=== PATIENT | male | born 2000 | race Caucasian/White ===

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

== ENCOUNTER 2022-05-23 18:16 | Emergency (ER) | payer MEDICAID, SELFPAY ==
--- NOTE | ~2022-05-23 | CT_ITS ---
EXAMINATION: CT head/brain wo IV con CLINICAL INFORMATION: Reason for Exam new onset seizure COMPARISON: None. TECHNIQUE: Contiguous axial imaging was performed from the skull base to vertex without intravenous contrast. Sagittal and coronal reformatted images were obtained. This CT examination was performed using dose optimization techniques as appropriate, variously including the following: * Automated exposure control * Adjustment of mA and/or kV according to patient size (this includes techniques or standardized protocols for targeted exams where dose is matched to indication/reason for exam; i.e. extremities or head) Use of iterative reconstruction technique DLP: 757 mGy-cm FINDINGS: No acute osseous or soft tissue abnormality. The mastoids are clear. Partially visualized small left maxillary sinus mucous retention cyst. There is no evidence of acute intracranial hemorrhage or territorial infarction. No midline shift is seen. [place] to white matter differentiation is well preserved. No extra-axial fluid collections are identified. The posterior superior right cerebellum appears laterally displaced with mass effect on the confluence of sinuses. An enlarged extra-axial space along the anterolateral right cerebellar hemisphere may reflect a space-occupying arachnoid cyst. No hydrocephalus. No significant volume loss. There is no abnormal attenuation within the brain parenchyma. CT/CT head/brain wo IV con IMPRESSION: 1. No acute intracranial abnormality including hemorrhage, mass effect, hydrocephalus, or acute territorial edematous infarction. 2. Mild displacement of the posterior superior right cerebellum with associated enlargement of the extra-axial space along the anterolateral right cerebellar hemisphere, possibly reflecting a space-occupying arachnoid cyst. This could be further characterized with a nonemergent noncontrast MRI of the brain
--- NOTE | 2022-05-23 18:26 | ED_ITS ---
HPI - Seizure General Chief Complaint: Seizure Stated Complaint: SEIZURE, FALL Time Seen by Provider: 05/23/22 18:26 Source: family Mode of arrival: EMS History of Present Illness HPI Narrative: Patient history of severe autism not nonverbal brought by EMS for questionable episode of seizure which was unwitnessed. Patient was in the room alone mother was in separate room heard the sound of fall and found him on the floor with eyes up rolling and not responsive by the time EMS reached patient postictal stage improved and was back to normal no incontinence had a small tongue bite on the left side. Patient had similar episode 3 months ago it was also a unwitnessed. Patient has not seen any neurologist Seizure History: No Related Data Allergies Allergy/AdvReac Type Severity Reaction Status Date / Time No Known Allergies Allergy Verified 11/24/21 23:04 Review of Systems Review of Systems: Yes all other systems are reviewed and are negative [facility] Past Medical History Medical History Autism Social History Social History Alcohol intake: never Patient Tobacco Use Status: Never used Tobacco Advance Directives: No Advance Directives Information Provided: Yes Physical Exam Vital Signs: Vital Signs: Last Vital Signs Temp 97.1 F 05/23/22 18:29 Pulse 76 05/23/22 18:29 Resp 18 05/23/22 18:29 BP 98/73 05/23/22 18:29 Pulse Ox 99 05/23/22 18:29 O2 Del Method 05/23/22 18:29 BMI result Body Mass Index 22.6 Appearance: Alert. And awake nonverbal. No acute distress. Eyes: PERRLA, No Nystagmus ENT: Pharynx normal. Oral Mucosa moist tongue bite+ Neck: Normal inspection. Neck supple. CVS: Normal heart rate and rhythm. Pulses normal. Respiratory: No respiratory distress. Equal air entry bilateral, no wheezing/rales/rhonchi Abdomen: Soft and nontender. Bowel sounds are present, Skin: Skin warm and dry. Normal skin color. Normal skin turgor. Extremities: No lower extremity edema. No calf tenderness Neuro: Alert at baseline. No motor deficit. Medical Decision Making Medical Decision Making MDM Narrative: Patient with autism clinically had a seizure episode patient's mother refusing to start any new medication at this time will follow-up with his PCP/neurologist advised to start on Depakote. Patient had CT is negative for acute Lab Data MDM Lab Attestation statement: I reviewed the patient's lab results. Result Diagrams: 05/23/22 19:39 05/23/22 19:39 Labs: Lab Results 05/23/22 05/23/22 Range/Units 19:39 19:39 WBC 7.4 (4.8-10.8) X10*3/uL RBC 4.51 L (4.60-5.80) X10*6/uL Hgb 13.5 L (14.0-18.0) g/dl Hct 38.0 L (42.0-52.0) % MCV 84.3 (80.0-98.0) fL MCH 29.9 (27.0-33.0) pg MCHC 35.5 (31.0-36.0) g/dl RDW 12.7 (11.0-16.0) % Plt Count 227 (160-400) X10*3/uL MPV 10.1 (9.4-12.4) fL Immature Gran % (Auto) 0.1 (0.0-0.4) % Neut % (Auto) 73.2 H (45-73) % Lymph % (Auto) 17.3 L (20-40) % [place] % (Auto) 8.2 (2-11) % Eos % (Auto) 1.1 (0-4) % Baso % (Auto) 0.1 (0-2) % Lymph # (Auto) 1.3 (1.2-4.9) X10*3/uL [place] # (Auto) 0.6 (0.1-1.2) X10*3/uL Eos # (Auto) 0.1 (0.0-0.4) X10*3/uL Baso # (Auto) 0.0 (0.0-0.2) X10*3/uL Abs Immat Gran (auto) 0.01 (0.00-0.03) X10*3/uL Absolute Neuts (auto) 5.4 (2.0-8.3) x10*3/uL Absolute Nucleated RBC 0.000 (0.0-0.012) X10*3/uL Nucleated RBC % (auto) 0.0 (0.0-0.2) /100WBC Sodium 139 (135-145) mmol/L Potassium 3.7 (3.3-5.1) mmol/L Chloride 109 H (96-108) mmol/L Carbon Dioxide 24 (22-29) mmol/L Anion Gap 10 L (12-20) BUN 20 H (9-16) mg/dL Creatinine 0.76 (0.5-1.4) mg/dL Estim Creat Clear Calc 139.2 Estimated GFR > 60 Random Glucose 97 (60-115) mg/dL Calcium 9.5 (8.4-10.2) mg/dL Total Bilirubin 0.3 (0.0-1.0) mg/dL AST 24 (5-37) U/L ALT 26 (0-40) U/L Alkaline Phosphatase 108 (39-117) U/L Total Protein 6.7 (6.5-8.0) g/dL Albumin 4.4 (3.5-5.0) g/dL Discharge Plan Discharge Clinical Impression: New onset seizure Patient Disposition: Home, Self-Care Instructions: New-Onset Seizure in Adults (ED) Additional Instructions: Follow-up with neurologist for further management Report to the ER if recurrence of seizures Referrals: Amanda House MD [Physician] - 1 week
[2022-05-23 18:29] VITALS: BP 98/73; PULSE 76; RESP 18; TEMP 36.2; O2SAT 99; BMI 22.6
[2022-05-23 19:46] LABS: MANUAL DIFF FLAG NO
[2022-05-23 19:52] LABS: Basophils Percent Auto 0.1 % (0-2); Eosinophils Absolute Auto 0.1 X10*3/uL (0.0-0.4); Eosinophils Percent Auto 1.1 % (0-4); Hemoglobin 13.5 g/dl (14.0-18.0); Imm Gran Abs Auto 0.01 X10*3/uL (0.00-0.03); Imm Gran Pct Auto 0.1 % (0.0-0.4); Lymphocytes Absolute Auto 1.3 X10*3/uL (1.2-4.9); Lymphocytes Percent Auto 17.3 % (20-40); Mean Corpuscular HGB Conc 35.5 g/dl (31.0-36.0); Mean Corpuscular Hemoglobin 29.9 pg (27.0-33.0); Mean Corpuscular Volume 84.3 fL (80.0-98.0); Mean Platelet Volume 10.1 fL (9.4-12.4); Monocytes Absolute Auto 0.6 X10*3/uL (0.1-1.2); Monocytes Percent Auto 8.2 % (2-11); Neutrophils Absolute Auto 5.4 x10*3/uL (2.0-8.3); Neutrophils Percent Auto 73.2 % (45-73); Platelet Count 227 X10*3/uL (160-400); Red Blood Count 4.51 X10*6/uL (4.60-5.80); Red Cell Distribution Width 12.7 % (11.0-16.0); White Blood Count 7.4 X10*3/uL (4.8-10.8)
[2022-05-23 20:08] LABS: Alanine Aminotransferase 26 U/L (0-40); Albumin Level 4.4 g/dL (3.5-5.0); Alkaline Phosphatase 108 U/L (39-117); Anion Gap 10 (12-20); Aspartate Amino Transferase 24 U/L (5-37); Bilirubin Total 0.3 mg/dL (0.0-1.0); Blood Urea Nitrogen 20 mg/dL (9-16); Calcium 9.5 mg/dL (8.4-10.2); Carbon Dioxide 24 mmol/L (22-29); Chloride 109 mmol/L (96-108); Creatinine Clr Calc Pharmacy 139.2; Estimated Glomerular Filt Rate > 60; Glucose Random 97 mg/dL (60-115); Potassium 3.7 mmol/L (3.3-5.1); Sodium 139 mmol/L (135-145); Total Protein 6.7 g/dL (6.5-8.0)
== END 2022-05-23 20:47 | disposition home or self-care (01) ==
PROVIDERS: Emergency Provider Internal Medicine; PCP Pediatrics
DX: R56.9 Unspecified convulsions (principal); F84.0 Autistic disorder
CPT/HCPCS: 36415; 70450; 80053; 85025; 99282; 99284

== ENCOUNTER 2023-11-26 08:57 | Outpatient (AMB) | payer OTHER, SELFPAY ==
[2023-11-26 09:10] VITALS: BP 130/62; PULSE 50; O2SAT 98; BMI 18.9
--- NOTE | 2023-11-26 09:10 | MHC.PC.OV ---
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: No Information Interpreted: non-clinical only [employer]: Present Accompanied by: Mother Allergies No Known Allergies Allergy (Verified 11/26/23 09:35) Medication List - Last Reconciled 11/26/23 by Linda Buenrostro MD levetiracetam 500 mg PO BID Tobacco use date assessed: 11/26/23 Dental Screening Dental Screen Date: 11/26/23 Did you have a dental visit in the last 12 months?: Yes Did you have a dental problem in the last 6 months where you did not have access to dental care?: No Was dental information given to patient?: Patient has dentist HPI HPI Comments History of Present Illness Details This is a 23-year-old male with autism that comes accompanied by mother which is the main historian for his physical exam as new patient. He is nonverbal and does not make eye contact. No acute complaints. Has seizures follow by Neurology at [facility]. [facility] Medical History (Updated 11/26/23 @ 09:46 by Linda Buenrostro MD) Autism Surgical History (Updated 11/26/23 @ 09:39 by Linda Buenrostro MD) History of testicular surgery Family History Mother No problems noted. Other Hypertension Mental health problem Social History Alcohol intake: never Patient Tobacco Use Status: Never used Tobacco Current occupational status: disabled Cognitive needs: No Hearing needs: No Vision needs: No Questionnaire PHQ-9 Over the last 2 weeks, how often have you been bothered by any of the following problems? 1. Little interest or pleasure in doing things: not at all 2. Feeling down, depressed, or hopeless: not at all 3. Trouble falling or staying asleep, or sleeping too much: not at all 4. Feeling tired or having little energy: not at all 5. Poor appetite or overeating: not at all 6. Feeling bad about yourself - or that you are a failure or have let yourself or your family down: not at all 7. Trouble concentrating on things, such as reading the newspaper or watching television: not at all 8. Moving or speaking so slowly that other people could have noticed. Or the opposite - being so fidgety or restless that you have been moving around a lot more than usual: not at all 9. Thoughts that you would be better off or of hurting yourself in some way: not at all Total score: 0 Depression Screening Interpretation: Negative Depression Screening Done: Yes 93340 - PHQ-9 Billing: Yes Source: Developed by Drs. Adriano Mckeon, Roseann Arroyo, Michael Lopez and colleagues, with an educational lani from [employer]. Thrive Questionnaire Date Thrive assessed: 11/26/23 I am a: Patient What is your living situation today?: I have a steady place to live Within the past 12 months, did the food you bought not last and you didn't have the money to get more?: Never true Within the past 12 months, did you worry whether your food would run out before you got money to buy more?: Never true Do you have trouble paying for medicines?: No Do you have trouble getting transportation to medical appointments?: No Do you have trouble paying your heating and electricity bill?: No Do you have trouble taking care of your child, family member or friend?: No Do you have trouble with day-to-day activities such as bathing, preparing meals, shopping, managing finances, etc.?: No Are you currently unemployed and looking for a job?: No Are you interested in more education?: No Please select the resources that you would like help with: None THRIVE Score: 0 AUDIT C Alcohol Use Questionnaire (AUDIT-C) 1. How often do you have a drink containing alcohol?: Never Total Score: 0 JOSÉ-7 AMB Questionnaire JOSÉ-7 Date JOSÉ - 7 assessed: 11/26/23 Feeling nervous, anxious, or on edge: 0 = Not at all Not being able to stop or control worryin = Not at all Worrying too much about different things: 0 = Not at all Trouble relaxin = Not at all Being so restless that it is hard to sit still: 0 = Not at all Becoming easily annoyed or irritable: 0 = Not at all Feeling afraid as if something awful might happen: 0 = Not at all Total JOSÉ-7 score (0-4 normal; 5-9 mild; 10-14 moderate; 15-21 severe): 0 Source: Developed by Drs. Adriano Mckeon, Roseann Arroyo, Michael Lopez and colleagues, with an educational lani from [employer]. JOSÉ-7 Assessment Billing JOSÉ-7 Assessment Tool: JOSÉ-7 Assessment 64843 Review of Systems Const All systems reviewed & are unremarkable except as noted in HPI and below ENT Denies change in voice, Denies nasal discharge and Denies sinus pain Card Denies chest pain at rest, Denies chest pain with activity, Denies edema, Denies irregular heart rhythm, Denies claudication, Denies dyspnea, Denies dyspnea on exertion, Denies orthopnea, Denies paroxysmal nocturnal dyspnea and Denies slow heart rate Resp Denies cough, Denies dyspnea and Denies dyspnea on exertion GI Denies abdominal pain, Denies change in bowel habits, Denies excessive flatus, Denies nausea and Denies vomiting Denies urinary hesitancy, Denies urinary incontinence and Denies urinary urgency Musc Denies atrophy, Denies deformity and Denies limited range of motion Skin/Breast Denies bleeding lesions, Denies changing lesions and Denies rash Physical exam (Primary Care) Vital Signs: Last Vital Signs Pulse Ox 98 11/26/23 09:10 Oxygen Delivery Method Room Air 11/26/23 09:10 BMI result Body Mass Index 18.9 Tobacco/Smoking Status: Tobacco use Status Tobacco use date assessed 11/26/23 11/26/23 09:13 Patient Tobacco Use Status Never used Tobacco 11/26/23 09:10 PHQ-9: PHQ-9 Score PHQ-9: Total score 0 11/26/23 09:19 Depression Screening Interpretation: Negative Thrive Assessment: Date of Thrive Assessment Date Thrive assessed 11/26/23 11/26/23 09:19 HENUT Head: Yes normal to inspection, Yes normocephalic and Yes atraumatic Ears: external ears normal General nose exam: Normal external nose present and No nasal discharge present Face and sinus: Yes sinuses nontender Mouth: lip normal Eyes General: appearance normal, both eyes and all related structures Eyelids: Yes eyelids normal Conjunctivae: conjunctivae normal Neck Neck: Yes normal visual inspection and Yes supple Resp Effort & Inspection: normal respiratory effort Auscultation: clear to auscultation bilaterally Cardio Jugular venous distension: no JVD Rate: regular rate Rhythm: regular rhythm Heart sounds: S1 normal heart sound present and S2 normal heart sound present GI Inspection: Yes normal to inspection Palpation (GI): Soft to palpation and nontender Auscultation: normal bowel sounds Skin General skin exam: no rashes or lesions noted Neuro General: no focal motor deficits Extrem General: Yes full ROM Assessment and Plan Assessment & Plan (1) Physical exam: Code(s): Z00.00 - Encounter for general adult medical examination without abnormal findings Plan: Repeat in a year. (2) Seizures: Code(s): R56.9 - Unspecified convulsions Plan: Continue Keppra. Follow-up with Neurology. Orders: Orders T Spot TB Today Z11.1 - Encounter for screening for respiratory tuberculosis Mumps Virus IgG Antibody Today Z23 - Encounter for immunization Rubella IgG Antibody Today Z23 - Encounter for immunization Rubeola IgG (Measles) Today Z23 - Encounter for immunization Medications: New acetaminophen 500 mg PO Q6H 30 days PRN 120 tabs 6RF fever or pain Coding Level of Care Code Est Pt Prev Care 18-39y(17632) Diagnoses Physical exam Z00.00 Seizures R56.9 Additional Codes JOSÉ-7 Assessment Billing - JOSÉ-7 Assessment Tool: JOSÉ-7 Assessment [id number] ([id number]) Time Spent (min) 30
== END 2023-11-26 09:50 | disposition home or self-care (01) ==
PROVIDERS: PCP Internal Medicine; Visit Provider Internal Medicine
DX: Z00.00 Encounter for general adult medical examination without abnormal findings (principal); R56.9 Unspecified convulsions
CPT/HCPCS: 99395

== ENCOUNTER 2023-11-26 10:00 | Outpatient (REF) | payer OTHER, SELFPAY ==
[2023-11-27 09:28] LABS: Rubella IgG Antibody 1.07 Index; Rubeola IgG (Measles) >300.00 AU/mL
[2023-11-28 22:28] LABS: TS Negative Control Passed; TS Panel A 0; TS Panel B 0; TS Positive Control Passed; TSpotTB Negative (Negative)
== END 2023-11-26 10:01 | disposition home or self-care (01) ==
LOC: HO.LAB 10:00
PROVIDERS: PCP Internal Medicine; Visit Provider Internal Medicine
DX: Z23 Encounter for immunization (principal); Z11.1 Encounter for screening for respiratory tuberculosis
CPT/HCPCS: 36415; 86481; 86735; 86762; 86765

== ENCOUNTER 2025-03-30 15:54 | Outpatient (AMB) | payer OTHER, SELFPAY ==
--- NOTE | 2025-03-30 16:13 | A.OFFPC_ITS ---
Vital Signs 03/30/25 16:16 Height 5 ft 6 in Weight 135 lb 8 oz BMI 21.9 BP 120/60 Blood Pressure Location Lt brachial Position Sitting Pulse 58 Pulse Source Pulse Oximeter Temp 97.5 F Temp Source Temporal Artery Scan Pulse Oximetry (%) 98 Oxygen Delivery Method Room Air Intake Visit Reasons: Annual pe Intake Note: Patient is here today for a physical. [employer] [place] Required: No Credit Advisor: Present Accompanied by: Mother Allergies No Known Allergies Allergy (Verified 03/30/25 16:45) Medication List - Last Reconciled 03/30/25 by Linda Buenrostro MD acetaminophen 500 mg PO Q6H PRN 30 days levetiracetam 500 mg PO BID Tobacco use date assessed: 03/30/25 Dental Screening Dental Screen Date: 03/30/25 Did you have a dental visit in the last 12 months?: No Did you have a dental problem in the last 6 months where you did not have access to dental care?: No Was dental information given to patient?: Patient has dentist HPI HPI Comments History of Present Illness Details The patient is a 25-year-old male presenting for a routine annual physical examination. He has a history of a seizure disorder, for which he takes Keppra, and has not seen a neurologist in over a year. His caregiver has not observed any seizures. He is nonverbal due to autism and is accompanied by mother which is the historian. The patient also has a history of insomnia, with some nights where he is awake for most of the night. He has been taking 10 mg of melatonin, which has not been effective. His past surgical history is significant for testicular surgery. He has no known drug allergies. His mother is alive and has no health problems. [facility] Medical History Autism Surgical History History of testicular surgery Family History Mother No problems noted. Other Hypertension Mental health problem Social History Housing: House Alcohol intake: never Patient Tobacco Use Status: Never used Tobacco e-Cigarette/Vaping Use: Never Used Second Hand Smoke Exposure: No service: No Current occupational status: disabled Cognitive needs: No Hearing needs: No Vision needs: No Questionnaire PHQ-9 Over the last 2 weeks, how often have you been bothered by any of the following problems? 1. Little interest or pleasure in doing things: not at all 2. Feeling down, depressed, or hopeless: not at all 3. Trouble falling or staying asleep, or sleeping too much: not at all 4. Feeling tired or having little energy: not at all 5. Poor appetite or overeating: not at all 6. Feeling bad about yourself - or that you are a failure or have let yourself or your family down: not at all 7. Trouble concentrating on things, such as reading the newspaper or watching television: not at all 8. Moving or speaking so slowly that other people could have noticed. Or the opposite - being so fidgety or restless that you have been moving around a lot more than usual: nearly every day 9. Thoughts that you would be better off or of hurting yourself in some wa y: not at all Total score: 3 Depression Screening Interpretation: Positive Depression Screening Follow-up: Existing condition and Follow-up Visit Requested Depression Screening Done: Yes 08423 - PHQ-9 Billing: Yes Source: Developed by Drs. Adriano Mckeon, Roseann Arroyo, Michael Lopez and colleagues, with an educational lani from [employer]. Thrive Questionnaire Date Thrive assessed: 03/23/25 I am a: Patient What is your living situation today?: I have a steady place to live Within the past 12 months, did the food you bought not last and you didn't have the money to get more?: Never true Within the past 12 months, did you worry whether your food would run out before you got money to buy more?: Never true Do you have trouble paying for medicines?: No Do you have trouble getting transportation to medical appointments?: No Do you have trouble paying your heating and electricity bill?: No Do you have trouble taking care of your child, family member or friend?: No Do you have trouble with day-to-day activities such as bathing, preparing meals, shopping, managing finances, etc.?: Yes Are you currently unemployed and looking for a job?: I choose not to answer this question Are you interested in more education?: No Please select the resources that you would like help with: None Currently or been in a relationship where the following occur: No concerns reported THRIVE Score: 0 AUDIT C Alcohol Use Questionnaire (AUDIT-C) 1. How often do you have a drink containing alcohol?: Never Total Score: 0 Score Reviewed/Action Taken: No JOSÉ-7 AMB Questionnaire JOSÉ-7 Date JOSÉ - 7 assessed: 03/30/25 Feeling nervous, anxious, or on edge: 0 = Not at all Not being able to stop or control worryin = Not at all Worrying too much about different things: 0 = Not at all Trouble relaxin = Not at all Being so restless that it is hard to sit still: 1 = Several days Becoming easily annoyed or irritable: 0 = Not at all Feeling afraid as if something awful might happen: 0 = Not at all Total JOSÉ-7 score (0-4 normal; 5-9 mild; 10-14 moderate; 15-21 severe): 1 Source: Developed by Drs. Adriano Mckeon, Roseann Arroyo, Michael Lopez and colleagues, with an educational lani from [employer]. JOSÉ-7 Assessment Billing JOSÉ-7 Assessment Tool: JOSÉ-7 Assessment 97247 Review of Systems Const All systems reviewed & are unremarkable except as noted in HPI and below Card Denies chest pain at rest, Denies chest pain with activity, Denies edema, Denies irregular heart rhythm, Denies claudication, Denies dyspnea, Denies dyspnea on exertion, Denies orthopnea, Denies paroxysmal nocturnal dyspnea and Denies slow heart rate Resp Denies cough, Denies dyspnea and Denies dyspnea on exertion GI Denies abdominal pain, Denies change in bowel habits, Denies excessive flatus, Denies nausea and Denies vomiting Physical exam (Primary Care) Vital Signs: Last Vital Signs Temp 97.5 F 03/30/25 16:16 Pulse 58 03/30/25 16:16 BP 120/60 03/30/25 16:16 Pulse Ox 98 03/30/25 16:16 Oxygen Delivery Method Room Air 03/30/25 16:16 BMI result Body Mass Index 21.9 Tobacco/Smoking Status: Tobacco use Status Tobacco use date assessed 03/30/25 03/30/25 16:21 Patient Tobacco Use Status Never used Tobacco 03/30/25 16:13 e-Cigarette/Vaping Use Never Used 03/30/25 16:21 PHQ-9: PHQ-9 Score PHQ-9: Total score 3 03/30/25 16:50 Depression Screening Interpretation: Positive Depression Screening Follow-up: Existing condition and Follow-up Visit Requested Thrive Assessment: Date of Thrive Assessment Date Thrive assessed 03/23/25 03/30/25 16:13 Currently or been in a relationship where the following occur: No concerns reported [facility] Head: Yes normal to inspection, Yes normocephalic and Yes atraumatic Ears: external ears normal Eyes General: appearance normal, both eyes and all related structures Eyelids: Yes eyelids normal Conjunctivae: conjunctivae normal Neck Neck: Yes normal visual inspection and Yes supple Resp Effort & Inspection: normal respiratory effort Auscultation: clear to auscultation bilaterally Cardio Jugular venous distension: no JVD Rate: regular rate Rhythm: regular rhythm Heart sounds: S1 normal heart sound present and S2 normal heart sound present GI Inspection: Yes normal to inspection Palpation (GI): Soft to palpation and nontender Auscultation: normal bowel sounds Skin General skin exam: no rashes or lesions noted Neuro General: no focal motor deficits Extrem General: Yes full ROM Psych Appearance: grossly normal Office Procedures Flu Questionnaire Does the patient have a severe egg allergy?: No Does the patient have severe life threatening allergies?: No Does the patient have a fever or illness today?: No Has the patient ever had Guillain-[place] Syndrome?: No Has the patient ever had any past reaction to a flu shot?: No Immunizations Fluarix [id number] (PF) 45 mcg (15 mcg x 3)/0.5 mL IM syringe Performing Provider: Linda Buenrostro MD [facility] Administered by: JOSELO Schreiber on 03/30/25 16:56 Dose Route Admin Location Dispensed Lot Number Expiration Date KSC Counter Help 0.5 mL IM Left Deltoid 0.5 mL [id number] 11/16/25 [id number] I and love and you VIS Given Date VIS Provided VIS Publication Date 03/30/25 Single Vaccine 24 Eligibility Eligibility Date Funding Source Not [facility] Eligible 03/30/25 Private Coding Level of Care Code Est Pt Level 3 (90302) Est Pt Prev Care 18-39y(87251) Diagnoses Physical exam Z00.00 Seizures R56.9 Insomnia G47.00 Additional Codes JOSÉ-7 Assessment Billing - JOSÉ-7 Assessment Tool: JOSÉ-7 Assessment 49929 ([id number]) PHQ-9 - 73764 - PHQ-9 Billing: Yes ([id number]) Time Spent (min) 31 Assessment & Plan Assessment & Plan (1) Physical exam: Code(s): Z00.00 - Encounter for general adult medical examination without abnormal findings Category: Medical (2) Seizures: Code(s): R56.9 - Unspecified convulsions Category: Medical (3) Insomnia: Code(s): G47.00 - Insomnia, unspecified Category: Medical Plan Plan 1. Encounter For Annual General Examination Without Abnormal Findings The patient received an influenza vaccine during the visit. Routine lab work was deferred for this year. Plan to follow up in one year. 2. Insomnia, Unspecified The patient reports poor sleep, noting that 10 mg of melatonin has been ineffective. It was recommended to discontinue melatonin. Trazodone was prescribed for 30 days on a trial basis, to be used as needed. The prescription was sent to [facility]. It was confirmed that this medication does not interact with Keppra. 3. Seizure Disorder The patient will continue taking Keppra for his seizure disorder. A prescription for Keppra was sent. Orders: Orders Influenza [id number] Immunization Today Z23 - Encounter for immunization Medications: New trazodone 50 mg PO BEDTIME PRN 30 tabs 0RF sleep 30 days Changed From levetiracetam 500 mg PO BID To levetiracetam 500 mg PO BID 180 tabs 1RF 90 days Refilled acetaminophen 500 mg PO Q6H PRN 120 tabs 6RF fever or pain 30 days
[2025-03-30 16:16] VITALS: BP 120/60; PULSE 58; TEMP 36.4; O2SAT 98; BMI 21.9
--- OUTSIDE RECORDS SUMMARY | 2025-03-30 17:19 | XMS_ITS | Encounter Summary ---
Author Organization [facility] Address [address] [place] [phone] Phone Care Team Providers Care Blood Bank Technologist Name Role Phone Kelly Chaparro MD Primary Care Provider [phone] Encounter Details Date Type Department Care Team (Late st Contact Info) Description 01/03/2017 Conversion Encounter [facility] [address] [place] [address] Social History Tobacco Use Types Packs/Day Years Used Date Smoking Tobacco: Never Comments:Never smoker Sex and Gender Information Value Date Recorded Sex Assigned at Not on file Legal Sex Male 5:00 PM EDT Gender Identity Not on file Sexual Orientation Not on file documented as of this encounter Plan of Treatment Not on file documented as of this encounter Visit Diagnoses Not on filedocumented in this encounter Care Teams Blood Bank Technologist Relationship Specialty Start Date End Date Kelly Chaparro MD [address] [place] [address] PCP - General Pediatrics 04/12/20 03/19/23 documented as of this encounter
--- OUTSIDE RECORDS SUMMARY | 2025-03-30 17:19 | XMS_ITS | Encounter Summary ---
Author Organization [facility] Address [address] [place] [phone] Phone Care Team Providers Care Librarian Specialist Name Role Phone Kelly Chaparro MD Primary Care Provider [phone] Encounter Details Date Type Department Care Team (Late st Contact Info) Description 11/17/2012 Documentation EM Family Medicine [address] [place] [address] Family Medicine, Physician [address] [place], [place] [id number] Social History Tobacco Use Types Packs/Day Years Used Date Smoking Tobacco: Never Assessed Sex and Gender Information Value Date Recorded Sex Assigned at Not on file Legal Sex Male 5:00 PM EDT Gender Identity Not on file Sexual Orientation Not on file documented as of this encounter Plan of Treatment Not on file documented as of this encounter Visit Diagnoses Not on filedocumented in this encounter Care Teams Librarian Specialist Relationship Specialty Start Date End Date Kelly Chaparro MD [address] [place] [id number] PCP - General Pediatrics 04/12/20 03/19/23 documented as of this encounter
--- OUTSIDE RECORDS SUMMARY | 2025-03-30 17:19 | XMS_ITS | Clinical Summary ---
Author Organization [facility] Address [address] [place] [phone] Phone Care Team Providers Care Pool Servicer Name Role Phone Unavailable Primary Care Provider Unavailabl e Allergies No known active allergies Medications Polyethylene Glycol 3350 (MIRALAX PO) Take 17 g by mouth. 06/21/2022 Active Active Problems Problem Noted Date Diagnosed Date Seizures 06/22/2022 Overview (11/23/2022): 2 episodes of altered consciousness with tongue biting and eye rolling. Normal EEG 06/08/2022, pending neuro appt. 3rd episode was GTC - saw adult neuro 11/15/22 - plan to start keppra and get 24 hr amb EEG. Assessment & Plan (11/23/2022 5:47 PM EDT): Saw adult neuro Dr Rodgers at [facility]. She wants to start him on Keppra and get a 24 hr ambulatory EEG. Mom feels both of these things will be difficult - he doesn't take any meds well and hates having things on his head. They will try and f/u with neuro. Seizure precautions discussed. Counseling and coordination of care 06/27/2020 Autism 02/07/2012 Overview (02/10/2020): Verbal but just barely. Only single word utterances and some other vocalizations. Major sensory issues. Assessment & Plan (11/23/2022 5:48 PM EDT): In school program until age 24. Barely verbal. Mother has guardianship. Plan to transition to adult day program at 24 and stay living at home with mother. Assessment & Plan (04/11/2020 9:52 AM EST): Verbal but just barely. Only single word utterances and some other vocalizations. Major sensory issues. Gets services through school, which is only remote at the moment, due to increased COVID cases in the area. Mother working towards getting guardianship, as Mg turned 20 recently. The school was helping with this transition, but everything got put on hold due to the shutdown, including the courts. Assessment & Plan (02/10/2020 2:36 PM EDT): Will give letter re not wearing a mask if he is unable to keep it on, with the stipulation that his OT services at school work towards Mg tolerating wearing a mask. This pandemic is not resolving any time soon, and Mg will need ways to keep himself and others safe in public. Per his mother, aside from school, he does not go anywhere other than his own home. Delayed speech 09/14/2009 Hypotonia 09/14/2009 Immunizations Immunization Administration Dates Next Due COVID-19 Pfizer, bivalent, 12+ years 06/22/2022 DTaP 5 01/06/2007, 4,2002,07/09,2002 H1N1 07/20/2009 HPV Vaccine 9 Valent 07/05/2016,04/12/2015 Hep A, ped/adol 04/12/2015,10/04/2010 Hep B, ped/adol 2002,2002,2002 Hib (PRP-T) 06/15/2003, 3,2002,05/08 IPV 01/06/2007, 3,2002,05/08 Influenza Split 02/07/2012 Influenza, injectable, MDCK, preservative free, quadrivalent 07/05/2016 Influenza, injectable, quadrivalent 04/12/2015,1 06/06/2013 Influenza, injectable, quadr ivalent, preservative free 03/28/2022,04/17/2021,04/11/2020,04/02,04/01/2018,04/12/2015,04/01/2013 Influenza, injectable, trivalent 07/15/2008,04/19 MMR 03/15/2003 MMRV 01/06/2007 Meningococcal Conj (Menactra) MCV4P 04/01/2018,1 06/06/2013 Pneumococcal Conjugate 06/15/2003,2002,2002,05/08 Tdap 04/06/2014 Varicella 03/15/2003 Family History Medical History Relation Name Comments Allergic rhinitis Mother Gayla Asthma Mother Gayla Hyperlipidemia Mother Gayla Relation Name Status Comments Father Father: Unknown Mother Gayla Alive Other No family histo ry of Seizure disorder, No family history of Strabismus, No family history of Migraines, Family history of ADD/ADHD, No family history of Sudden /OK under 55, Family history of Obesity, No family history of *Sudden /OK under 55, Family history of Diabetes mellitus, No family history of *CVA/Stroke, No family history of *Heart Disease, No family history of Developmental dislocation of hip, No family history of Deafness, Family history of Cancer, lung Social History Tobacco Use Types Packs/Day Years Used Date Smoking Tobacco: Never Smokeless Tobacco: Never Tobacco Cessation:Counseling Given: Yes Comments:Never smoker Alcohol Use Standard Drinks/Week Comments No 0 (1 standard drink = 0.6 oz pur e alcohol) Hunger/Food Answer Date Recorded In the last 12 months, did y ou or your family ever eat less than you felt you should because there wasn't enough money for food? No 11/23/2022 Stable Housing Answer Date Recorded Are you worried that in the next 2 months you may not have stable housing? No 11/23/2022 Transportation Concerns Answer Date Rec orded In the last 12 months, have you or your family ever had to go without healthcare because you didn't have a way to get there? No 11/23/2022 Hazards in Home Answer Date Recorded Think about the place you li ve. Do you have problems with any of the following? Pests (mice or roaches), mold, no/not working smoke detectors, water leaks, no window guards. No 2022 Financing Utilities Answer Date Recorde d In the last 12 months, has t he electric, gas, oil, or water company threatened to shut off your services in your home? No 11/23/2022 Safety at Home Answer Date Recorded Are you or your family worried about feeling saf e in your home? No 11/23/2022 Outside Support Answer Date Recorded Do you feel that you need mo re support from other people or programs to help you care for yourself or your family? No 11/23/2022 Understanding Health Concerns Answer Da te Recorded Do you need help understandi ng your or your child's healthcare needs (diagnosis, medications, plan, etc.)? No 11/23/2022 Financing Health Concerns Answer Date R ecorded In the last 12 months, was t here a time when your child needed to see a doctor or get medications or supplies but could not because of cost? No 11/23/2022 Missing School or Work Answer Date Shane rded Did you or your child miss s chool or work because of a health problem that could have been avoided? No 11/23/2022 Sex and Gender Information Value Date Recorded Sex Assigned at Not on file Legal Sex Male 5:00 PM EDT Gender Identity Not on file Sexual Orientation Not on file Last Filed Vital Signs Vital Sign Reading Time Taken Comments Blood Pressure 111/69 11/23/2022 3:21 PM EDT Pulse 75 11/23/2022 3:21 PM EDT Temperature 36.6 C (97.9 F) 06/22/2022 2:07 PM EST Respiratory Rate - - Oxygen Saturation - - Inhaled Oxygen Concentration - - Weight 58.8 kg (129 lb 9.6 oz) 11/23/2022 3:21 P M EDT Height 169.9 cm (5' 6.9 ) 11/23/2022 3:21 PM EDT Body Mass Index 20.36 11/23/2022 3:21 PM EDT Plan of Treatment Health Maintenance Due Date Last Done Comments Men B Vaccine (1 of 2 - Standard) 2018 DTaP,Tdap,and Td Vaccines (7 - Td or Tdap) 04/06/2024 04/06/2014, 01/06/2007, 09/22/2003, Additional history exists Influenza Vaccines (#1) 2024 03/28/20, 04/17/2021, 04/11/2020, Additional history exists COVID-19 Vaccine ( - 2024-2 6 season) 2025 06/22/2022, 05/30/2021, 10/26/2020, Additional history exists Hepatitis B Vaccines Completed 2002, 2002, 2002 HIB Vaccines Completed 06/15/2003, 12/2002, 2002, Additional history exists Pneumococcal Vaccine Completed 06/15/2003, 2002, 2002, Additional history exists IPV Vaccines Completed 01/06/2007, 12/18, 2002, Additional history exists MMR Vaccines Completed 01/06/2007, 03/15/2003 Varicella Vaccines Completed 01/06/2007, 03/15/2003 Hepatitis A Vaccines Completed 04/12/2015, 10/05/19 HPV Vaccines Completed 07/05/2016, 04/12/2015 Meningococcal Vaccine Completed 04/01/2018, 014 Insurance [facility] NON [facility]
== END 2025-03-30 16:57 | disposition home or self-care (01) ==
LOC: HO.HMCH 15:55
PROVIDERS: PCP Internal Medicine; Visit Provider Internal Medicine
DX: Z00.00 Encounter for general adult medical examination without abnormal findings (principal); R56.9 Unspecified convulsions; G47.00 Insomnia, unspecified; Z23 Encounter for immunization

== ENCOUNTER → 2025-03-30 15:54 | Outpatient (BNVA) | payer OTHER, SELFPAY | PROVIDERS: PCP Internal Medicine; Visit Provider Internal Medicine | DX: Z00.00 Encounter for general adult medical examination without abnormal findings (principal); Z23 Encounter for immunization; R56.9 Unspecified convulsions; G47.00 Insomnia, unspecified | CPT/HCPCS: 90471; 90656; 96127; 99212; 99395 ==